=== PATIENT | female | born 1935 | race Caucasian/White ===

== ENCOUNTER → 2016-12-22 17:12 | Outpatient (CLI) | payer MEDICARE ==
[2012-07-24 06:24] VITALS: BMI 29.8
== END | disposition home or self-care (01) ==
LOC: D.MAMMO 14:00
DX: Z12.31 Encounter for screening mammogram for malignant neoplasm of breast (principal)

== ENCOUNTER → 2018-01-04 17:00 | Outpatient (CLI) | payer MEDICARE ==
[2012-07-24 06:24] VITALS: BMI 29.8
== END | disposition home or self-care (01) ==
LOC: D.MAMMO 11:00
DX: Z12.31 Encounter for screening mammogram for malignant neoplasm of breast (principal)

== ENCOUNTER → 2020-07-28 14:45 | Outpatient (CLI) | payer MEDICARE ==
[2012-07-24 06:24] VITALS: BMI 29.8
[2020-07-28 15:19] LABS: BASOPHILS 0.2 % (0-2); EOSINOPHILS 2.2 % (0-7); HEMATOCRIT 41.9 % (36.0-48.0); HEMOGLOBIN 13.9 g/dL (12-16); IMMATURE GRANULOCYTES 0.2 % (0-5); LYMPHOCYTES 34.8 % (15-50); MCHC 33.2 g/dL (31.0-37.0); MCV 96.3 fL (80.0-100.0); MEAN PLATELET VOLUME 9.4 fL (7.4-10.4); MONOCYTES 5.6 % (2-11); PLATELET COUNT 277 10x3/uL (130-400); RBC 4.35 10x6/uL (4.00-5.40); RDW 12.6 % (11.5-14.5); WBC 8.4 10x3/uL (4.8-10.8)
[2020-07-28 16:26] LABS: ALBUMIN 3.7 g/dL (3.4-5.0); ANION GAP 13.7 mmol/L (8-16); BILIRUBIN - TOTAL 0.28 mg/dL (0.2-1.3); CALCIUM 9.3 mg/dL (8.5-10.1); CARBON DIOXIDE 27.1 mmol/L (21.0-32.0); CREATININE - SERUM 0.8 mg/dL (0.6-1.3); POTASSIUM - SERUM 4.8 mmol/L (3.5-5.1); PROTEIN - SERUM 7.8 g/dL (6.4-8.2)
== END | disposition home or self-care (01) ==
LOC: D.LAB 14:45
PROVIDERS: ATTEND Surgery
DX: K80.71 Calculus of gallbladder and bile duct without cholecystitis with obstruction (principal)

== ENCOUNTER → 2020-07-30 09:33 | Outpatient (CLI) | payer MEDICARE ==
[2012-07-24 06:24] VITALS: BMI 29.8
== END | disposition home or self-care (01) ==
LOC: D.MRI 09:33
PROVIDERS: ATTEND Nurse Practitioner
DX: K80.71 Calculus of gallbladder and bile duct without cholecystitis with obstruction (principal)

== ENCOUNTER 2020-08-18 09:39 | Inpatient (IN) | payer MEDICARE ==
[~2020-08-18] VITALS: Ht 170.2 cm; Wt 76.4 kg
[~2020-08-18 09:39] MED LIST: BAYER CHEWABLE81 MG PO; CALCIUM D; COZAAR100 MG PO; DIGOXIN250 MCG PO; FISH OIL 1,0001 CA1 PO; FUROSEMIDE40 MG PO; GLUCOPHAGE1000 MG PO; KLOR-CON 1010 MEQ PO; LANTUS INS100 UNITS/ SC; METOPROLOL TART50 MG PO; MULTI-DAY VITAM1 TAB PO; TRULICITY1.5 MG/0.5 SC; VIT E; ZETIA10 MG PO
[2020-08-18 10:30] LABS: BASOPHILS 0.2 % (0-2); EOSINOPHILS 4.3 % (0-7); HEMATOCRIT 35.1 % (36.0-48.0); HEMOGLOBIN 11.7 g/dL (12-16); IMMATURE GRANULOCYTES 0.1 % (0-5); LYMPHOCYTES 30.9 % (15-50); MCH 31.3 pg (26.0-34.0); MCHC 33.3 g/dL (31.0-37.0); MCV 93.9 fL (80.0-100.0); MEAN PLATELET VOLUME 9.2 fL (7.4-10.4); NEUTROPHILS 57.5 % (40-80); PLATELET COUNT 279 10x3/uL (130-400); RBC 3.74 10x6/uL (4.00-5.40); RDW 12.9 % (11.5-14.5); WBC 9.9 10x3/uL (4.8-10.8)
[2020-08-18 10:38] LABS: BILIRUBIN NEGATIVE (NEGATIVE); KETONE NEGATIVE (NEGATIVE); NITRITE POSITIVE (NEGATIVE); UROBILINOGEN NORMAL mg/dL (< 2)
[2020-08-18 10:39] LABS: BACTERIA MANY HPF (NONE SEEN); WHITE CELLS - URINE >50 HPF (0-4)
[2020-08-18 10:50] LABS: CALC OSMOLALITY 277 mosm/kg (275-300); CALCIUM 9.5 mg/dL (8.5-10.1); CARBON DIOXIDE 26.7 mmol/L (21.0-32.0); CHLORIDE - SERUM 104 mmol/L (98-107); CREATININE - SERUM 0.7 mg/dL (0.6-1.3); POTASSIUM - SERUM 3.9 mmol/L (3.5-5.1); SODIUM 138 mmol/L (136-145); UREA NITROGEN 15 mg/dL (7-18); eGFR NON AFRICAN AMERICAN 85 mL/min (90-120)
[2020-08-18 10:51] LABS: GLUCOSE 120 mg/dL (74-106)
[2020-08-18 11:01] LABS: ALBUMIN 3.3 g/dL (3.4-5.0); ALKALINE PHOSPHATASE 62 U/L (30-120); ALT (SGPT) 73 U/L (10-68); BILIRUBIN - TOTAL 0.32 mg/dL (0.2-1.3); C-REACTIVE PROTEIN 5.3 mg/dL (0.0-0.9); CREATINE KINASE 163 UL (21-215); LIPASE 63 U/L (73-393); MAGNESIUM - SERUM 1.5 mg/dL (1.8-2.4); PRO BNP 311 pg/mL (0-450); PROTEIN - SERUM 7.5 g/dL (6.4-8.2); THYROID STIMULATING HORMONE 1.28 uIU/mL (0.36-3.74)
[2020-08-18 11:02] LABS: TROPONIN-I < 0.017 ng/mL (0.000-0.060)
[2020-08-18 11:36] LABS: APTT 28.7 SECONDS (22.8-39.4); INR 0.96 (0.85-1.17); PROTIME 12.7 SECONDS (11.6-15.0)
[2020-08-18 12:08] VITALS: BP 167/70
--- NOTE | 2020-08-18 16:01 | NUR ---
FSBS 206
[2020-08-18 16:16] VITALS: BP 134/60
--- NOTE | 2020-08-18 16:20 | NUR ---
COVID SWAB TO LAB
[2020-08-18 16:57] VITALS: BP 149/66
--- NOTE | 2020-08-18 18:36 | NUR ---
FSBS 112
[2020-08-19 00:22] VITALS: BP 153/64; Ht 170.2 cm; Wt 76.4 kg
[2020-08-19 04:00] VITALS: BP 152/74; BP 159/74
[2020-08-19 08:00] VITALS: BP 194/82
[2020-08-19 17:48] VITALS: BP 170/77
[2020-08-19 20:00] VITALS: BP 189/58
--- NOTE | 2020-08-19 21:34 | NUR ---
REC'D. WALKING ROUNDS CHGE. OF SHIFT SITTING ON SIDE OF BED VISITING WITH DTR. WHO STATES WILL BE SPENDING THE NITE.SO SPOUSE CAN REST. ASSISTED TO BATHROOM EVELIA WELL.PRIYA SNOW.REMAINS CONFUSED TO TIME/ SITUATION,WITH HALLUCINATIONS STILL OF BAND PLAYING OUTSIDE WINDOOW WILL CONTINUE TO MONITOR FOR ANY CHGES AND FOLLOW CURRENT PLAN OF CARE.
[2020-08-20 04:00] VITALS: BP 194/84
[2020-08-20 05:30] LABS: BASOPHILS 0.3 % (0-2); EOSINOPHILS 5.5 % (0-7); HEMATOCRIT 33.1 % (36.0-48.0); HEMOGLOBIN 10.8 g/dL (12-16); IMMATURE GRANULOCYTES 0.1 % (0-5); LYMPHOCYTES 24.4 % (15-50); MCH 31.1 pg (26.0-34.0); MCHC 32.6 g/dL (31.0-37.0); MCV 95.4 fL (80.0-100.0); MEAN PLATELET VOLUME 9.2 fL (7.4-10.4); MONOCYTES 8.6 % (2-11); NEUTROPHILS 61.1 % (40-80); PLATELET COUNT 283 10x3/uL (130-400); RBC 3.47 10x6/uL (4.00-5.40)
[2020-08-20 06:07] LABS: ALBUMIN 2.6 g/dL (3.4-5.0); ANION GAP 8.9 mmol/L (8-16); BILIRUBIN - TOTAL 0.3 mg/dL (0.2-1.3); CALCIUM 8.1 mg/dL (8.5-10.1); CARBON DIOXIDE 27.9 mmol/L (21.0-32.0); CREATININE - SERUM 0.8 mg/dL (0.6-1.3); POTASSIUM - SERUM 3.8 mmol/L (3.5-5.1); PROTEIN - SERUM 6.4 g/dL (6.4-8.2)
--- NOTE | 2020-08-20 07:33 | NUR ---
LYING IN BED,WITHOUT DISTRESS.FAMILY AT BEDSIDE
[2020-08-20 08:46] VITALS: BP 166/69
[2020-08-20] MEDS ORDERED: LEVOFLOXACIN500 MG PO (10:19)
[2020-08-20 12:00] VITALS: BP 146/72
--- NOTE | 2020-08-20 12:56 | MORECARE ---
CASE MANAGEMENT DISCHARGE SUMMARY PATIENT: ANUSHA LIRA UNIT: [id number] ADM DATE: 08/19/20 AGE: 85 : 37 SEX: F ROOM/BED: D.2226 AUTHOR: AMANDO GODFREY PHYSICIAN: REFERRING PHYSICIAN: ADELITA WELLS MD DATE OF SERVICE: 08/20/20 Discharge Plan Patient Name: ANUSHA LIRA [facility] [facility] 1935 Planned Disposition: Anticipated Discharge Date: Discharge Date: Expected LOS: Initial Reviewer: [id number] Initial Review Date: 08/20/2020 Generated: 08/20/20 1:55 pm External Providers External Provider: [facility] Next Contact Date: Service Request Date: Service Type: Resolution: Reviewer: Comments: Coverage Notice Reviewer: [email or web address] Donald Tee Notice Issued Date-Time: 08/18/2020 14:40 Notice Type: Medicare Outpatient Observation Notice Notice Delivered To: Patient Relationship to Patient: Self Talent Scout Name: Delivery Method: HAND - Hand Delivered Nancie Days: Prior Verbal Notification: Recipient Understood Notice: Yes Recipient Signature: Yes Med Rec Note Co-signed by Attending: Coverage Notice Comment: WALLER SERVED, EXPLAINED, AND SIGNED BY PATIENT. THE ORIGINAL WAS PROVIDED TO THE PATIENT AND COPY PLACED ON CHART. Patient Name: ANUSHA LIRA Page [phone] at 1256 All edits/amendments must be made on the electronic document DICTATION DATE: 08/20/20 1255 BOTTLE LABEL INSPECTOR: JUANIS 08/20/20 1255 RPT#: [id number] DC DATE: STATUS: ADM IN [facility] [address] [place] [address] END OF REPORT
--- NOTE | 2020-08-20 13:05 | MORECARE ---
CASE MANAGEMENT DISCHARGE SUMMARY PATIENT: ANUSHA LIRA UNIT: [id number] ADM DATE: 08/19/20 AGE: 85 : 37 SEX: F ROOM/BED: D.2226 AUTHOR: AMANDO GODFREY PHYSICIAN: REFERRING PHYSICIAN: ADELITA WELLS MD DATE OF SERVICE: 08/20/20 Discharge Plan Patient Name: ANUSHA LIRA Facility: [facility]:[place] : 1935 Planned Disposition: Anticipated Discharge Date: Discharge Date: Expected LOS: Initial Reviewer: [email or web address] Initial Review Date: 08/20/2020 Generated: 08/20/20 2:05 pm Comments DCP- Discharge Planning Updated by [email or web address]: Brittany Claudio on 08/20/20 11:[address] Patient Name: ANUSHA LIRA Admission Status: ER Accout number: [id number] Admission Date: 08-19-2020 : 1935 Admission Diagnosis: Attending: ADELITA WELLS Current LOS: 1 Anticipated DC Date: Planned Disposition: Primary Insurance: MEDICARE A & B Discharge Planning Comments: CM met with patient at bedside after explaining CM role and obtaining verbal consent. CM discussed availability / needs of home health, REHAB and medical equipment. PATIENT SIGNED SOLOMON FOR [facility]. REFERRAL FAXED TO [facility] AND BEAN CONTACTED. PATIENT PLANS TO DC TO HOME WITH TODAY. STATES ENVIRONMENT IS SAFE AND HER DAUGHTER IS STAYING WITH THEM FOR SEVERAL DAYS. CM TO FOLLOW AND ASSIST NEEDED. Well Cleaner: Brittany Claudio External Providers [facility] Next Contact Date: Service Request Date: Service Type: Resolution: Reviewer: Comments: Coverage Notice Reviewer: [id number] - Vicky Tee Notice Issued Date-Time: 08/18/2020 14:40 Notice Type: Medicare Outpatient Observation Notice Notice Delivered To: Patient Relationship to Patient: Self Slope Runner Name: Delivery Method: HAND - Hand Delivered Nancie Days: Prior Verbal Notification: Recipient Understood Notice: Yes Recipient Signature: Yes Med Rec Note Co-signed by Attending: Coverage Notice Comment: WALLER SERVED, EXPLAINED, AND SIGNED BY PATIENT. THE ORIGINAL WAS PROVIDED TO THE PATIENT AND COPY PLACED ON CHART. Last DP export: 08/20/20 11:56 Patient Name: ANUSHA LIRA Page [phone] at 1305 All edits/amendments must be made on the electronic document DICTATION DATE: 08/20/20 130 LUNCH COUNTER MANAGER: JUANIS 08/20/20 130 RPT#: [id number] DC DATE: STATUS: ADM IN [facility] [address] [place] [address] END OF REPORT
--- NOTE | 2020-08-20 13:14 | MORECARE ---
CASE MANAGEMENT DISCHARGE SUMMARY PATIENT: ANUSHA LIRA UNIT: [id number] ADM DATE: 08/19/20 AGE: 85 : 37 SEX: F ROOM/BED: D.2226 AUTHOR: EPIFANIODOC PHYSICIAN: REFERRING PHYSICIAN: ADELITA WELLS MD DATE OF SERVICE: 08/20/20 Discharge Plan Patient Name: ANUSHA LIRA Facility: [facility]:[place] : 1935 Planned Disposition: Anticipated Discharge Date: Discharge Date: Expected LOS: Initial Reviewer: [email or web address] Initial Review Date: 08/20/2020 Generated: 08/20/20 2:13 pm Comments DCP- Discharge Planning Updated by [email or web address]: Brittany Claudio on 08/20/20 12:[address] Patient Name: ANUSHA LIRA Admission Status: ER Accout number: [id number] Admission Date: 08-19-2020 : 1935 Admission Diagnosis: Attending: ADELITA WELLS Current LOS: 1 Anticipated DC Date: Planned Disposition: Primary Insurance: MEDICARE A & B Discharge Planning Comments: CM met with patient at bedside after explaining CM role and obtaining verbal consent. CM discussed availability / needs of home health, REHAB and medical equipment. PATIENT SIGNED SOLOMON FOR [facility]. REFERRAL FAXED TO [facility] AND BEAN CONTACTED. PATIENT PLANS TO DC TO HOME WITH TODAY. STATES ENVIRONMENT IS SAFE AND HER DAUGHTER IS STAYING WITH THEM FOR SEVERAL DAYS. CM TO FOLLOW AND ASSIST NEEDED. Transportation Operations Manager: Brittany Claudio Appended by Brittany Claudio on 08/20/2020 13:12 CDT: ORDER FOR WALKER FAXED TO [facility] AND REQUESTED THEY DELIVER TO HER HOME. Coverage Notice Reviewer: [id number] - Vicky Tee Notice Issued Date-Time: 08/18/2020 14:40 Notice Type: Medicare Outpatient Observation Notice Notice Delivered To: Patient Relationship to Patient: Self Service Representative Name: Delivery Method: HAND - Hand Delivered Nancie Days: Prior Verbal Notification: Recipient Understood Notice: Yes Recipient Signature: Yes Med Rec Note Co-signed by Attending: Coverage Notice Comment: WALLER SERVED, EXPLAINED, AND SIGNED BY PATIENT. THE ORIGINAL WAS PROVIDED TO THE PATIENT AND COPY PLACED ON CHART. Last DP export: 08/20/20 12:05 Patient Name: ANUSHA LIRA Page [phone] at 1314 All edits/amendments must be made on the electronic document DICTATION DATE: 08/20/201312 OPERATION MANAGER: JUANIS 08/20/201312 RPT#: [id number] DC DATE: STATUS: ADM IN [facility] [address] [place] [address] END OF REPORT
--- NOTE | 2020-08-20 15:27 | NUR ---
OT NOTE: (DOS 08/19/2020) PT COMPLETED BED MOB TASKS WITH MIN A. PT REQUIRED SET UP FOR FACE HYGIENE. THANK YOU,REINA COHEN
--- NOTE | 2020-08-20 16:51 | NUR ---
OT NOTE: PT COMPLETED ADL MOB WITH RW REQUIRED CGA. PT COMPLETED BUE AROM AX WITH FUNCTIONAL TASKS. PT DOING WELL. [id number] THANK YOU,REINA COHEN
--- NOTE | 2020-08-21 09:03 | MORECARE ---
CASE MANAGEMENT DISCHARGE SUMMARY PATIENT: ANUSHA LIRA UNIT: [id number] ADM DATE: 08/19/20 AGE: 85 : 37 SEX: F ROOM/BED: D.2226 AUTHOR: EPIFANIO,DOC PHYSICIAN: REFERRING PHYSICIAN: ADELITA WELLS MD DATE OF SERVICE: 08/21/20 Discharge Plan Patient Name: ANUSHA LIRA Facility: [facility]:[place] : 1935 Planned Disposition: Anticipated Discharge Date: Discharge Date: 08/20/2020 Expected LOS: Initial Reviewer: [id number] Initial Review Date: 08/20/2020 Generated: 08/21/20 10:02 am Comments DCP- Discharge Planning Updated by [id number]: Brittany Claudio on 08/20/20 12:[address] Patient Name: ANUSHA LIRA Admission Status: ER Accout number: [id number] Admission Date: 08-19-2020 : 1935 Admission Diagnosis: Attending: ADELITA WELLS Current LOS: 1 Anticipated DC Date: Planned Disposition: Primary Insurance: MEDICARE A & B Discharge Planning Comments: CM met with patient at bedside after explaining CM role and obtaining verbal consent. CM discussed availability / needs of home health, REHAB and medical equipment. PATIENT SIGNED SOLOMON FOR [facility]. REFERRAL FAXED TO [facility] AND BEAN CONTACTED. PATIENT PLANS TO DC TO HOME WITH TODAY. STATES ENVIRONMENT IS SAFE AND HER DAUGHTER IS STAYING WITH THEM FOR SEVERAL DAYS. CM TO FOLLOW AND ASSIST NEEDED. Salary Manager: Brittany Claudio Appended by Brittany Claudio on 08/20/2020 13:12 CDT: [facility] AND REQUESTED THEY DELIVER TO HER HOME. Coverage Notice Reviewer: [id number] - Vicky Tee Notice Issued Date-Time: 08/18/2020 14:40 Notice Type: Medicare Outpatient Observation Notice Notice Delivered To: Patient Relationship to Patient: Self Oracle Business Intelligence Developer Name: Delivery Method: HAND - Hand Delivered Nancie Days: Prior Verbal Notification: Recipient Understood Notice: Yes Recipient Signature: Yes Med Rec Note Co-signed by Attending: Coverage Notice Comment: WALLER SERVED, EXPLAINED, AND SIGNED BY PATIENT. THE ORIGINAL WAS PROVIDED TO THE PATIENT AND COPY PLACED ON CHART. Last DP export: 08/20/20 12:14 Patient Name: ANUSHA LIRA Page [phone] at 0903 All edits/amendments must be made on the electronic document DICTATION DATE: 08/21/20901 POLITICAL ANALYST: JUANIS 08/21/20901 RPT#: [id number] DC DATE:08/20/20 STATUS: DIS IN [facility] [address] [place] [address] END OF REPORT
== END 2020-08-20 15:42 | disposition home or self-care (01) | DRG 71 ==
LOC: D.ER 09:39 → D.MS 13:14 → OBSVTIME 13:14 → D.EDHOLD 13:14 → D.MS 20:08
PROVIDERS: Family Medicine; ADMIT Family Medicine; ATTEND Family Medicine
DX: G93.41 Metabolic encephalopathy (principal); N39.0 Urinary tract infection, site not specified; R44.1 Visual hallucinations; E11.65 Type 2 diabetes mellitus with hyperglycemia; D64.9 Anemia, unspecified; E83.42 Hypomagnesemia; I10 Essential (primary) hypertension